=== PATIENT | male | born 1990 | race Hispanic/Latino ===

== ENCOUNTER 2022-09-15 00:30 | Emergency (ER) | payer OTHER ==
[~2022-09-15] VITALS: Ht 162.6 cm; Wt 133.4 kg
[2022-09-15 00:34] VITALS: BP 135/85
[2022-09-15] MEDS ORDERED: HYD25 PO (01:09)
[2022-09-15] MEDS ORDERED: PERM60CR19 TP (01:09)
== END 2022-09-15 01:18 | disposition home or self-care (01) ==
LOC: EDH 00:30
DX: B86 Scabies (principal)